=== PATIENT | male | born 1950 | race Caucasian/White ===

== ENCOUNTER 2016-10-08 10:44 | Inpatient (IN) | payer OTHER, MEDICARE ==
[~2016-10-08] VITALS: Ht 182.9 cm; Wt 125.7 kg
[~2016-10-08 10:44] MED LIST: ABILIFY10 MG PO; ABILIFY5 MG PO; ALPRAZOLAM0.5 MG PO; ASPIRIN81 M1 PO; Aspirin E.C. PO; CAMPTOSAR100 MG/5 M IV; CEPHALEXIN500 MG PO; CLINDAMYCIN PHO60 M1 TP; Carafate PO; DOXYCYCLINE HY100 MG PO; DOXYCYCLINE MO100 MG PO; ERBITUX200 MG/100 IV; FISH OIL 1,2001 EAC4 PO; HYDROCHLOROTHIA25 MG PO; HYDROCODON-ACE1 EAC7 PO; Hydrodiuril,Oretic,E PO; K-DUR20 MEQ PO; KETOCONAZOLE120 ML TP; Keflex PO; LAMICTAL200 MG PO; LaMICtal PO; MOTRIN600 MG PO; MOTRIN800 MG PO; MULTIVITAMIN1 EAC2 PO; MYRBETRIQ25 MG PO; NORCO 5/3251 TABLET PO; NORCO 7.5/321 TABLET PO; OMEGA 3-6-91200 MG PO; OMEPRAZOLE40 M1 PO; PARNATE10 MG PO; PERCOCET 5/31 TABLET PO; PROTONIX40 MG PO; Percocet 5/325,Endoc PO; Protonix PO; XANAX0.5 MG PO; XELODA500 MG PO; Xanax PO; ZOFRAN ODT8 MG PO; ZOFRAN4 MG PO
[2016-10-08 11:57] VITALS: BP 145/93
[2016-10-08] MEDS ORDERED: POTASSIUM CHLO20 ME1 PO (11:57)
[2016-10-08 20:45] VITALS: BP 165/80
[2016-10-08 23:44] VITALS: BP 149/75
[2016-10-09] VITALS (7 sets, daily range): BP systolic 124–167; BP diastolic 65–74
[2016-10-09 05:37] LABS: HEMATOCRIT 39.4 % (38.0-50.0); MCV 94.7 FL (86-99)
[2016-10-09 05:44] LABS: INTER. NORMALIZED RATIO 1.1; PROTHROMBIN TIME 10.7 (9.2-11.2)
[2016-10-09 06:02] LABS: ANION GAP 6 MEQ/L (2-14); CHLORIDE 105 MEQ/L (99-109); GFR ESTIMATE (CALCULATED) > 59 mL/min/; GLUCOSE 127 mg/dL (70-99); POTASSIUM 4.8 MEQ/L (3.7-5.4); SAMPLE HEMOLYSIS CHECK 0; SAMPLE ICTERIC CHECK 0; SAMPLE LIPEMIA CHECK 0; SODIUM 138 MEQ/L (136-147); UREA NITROGEN (BUN) 13 mg/dL (9-23)
[2016-10-10 00:10] VITALS: BP 127/75
[2016-10-10 03:42] VITALS: BP 124/68
[2016-10-10 05:34] LABS: HEMATOCRIT 37.7 % (38.0-50.0); MCV 94.3 FL (86-99)
[2016-10-10 05:46] LABS: INTER. NORMALIZED RATIO 1.1; PROTHROMBIN TIME 11.4 (9.2-11.2)
[2016-10-10 08:00] VITALS: BP 123/66
[2016-10-10] MEDS ORDERED: COUMADIN1 MG PO (08:15)
[2016-10-10] MEDS ORDERED: OXYCONTIN15 MG PO (08:15)
[2016-10-10] MEDS ORDERED: OXYCODONE HCL5 MG PO (08:15)
[2016-10-10 12:00] VITALS: BP 114/63
[2016-10-10] MEDS ORDERED: TYLENOL EXTRA500 MG PO (16:03)
[2016-10-10] MEDS ORDERED: PERCOCET 10/1 TABLET PO (16:07)
[2016-10-10] MEDS ORDERED: LYRICA75 MG PO (16:08)
== END 2016-10-10 14:58 | DRG 496 ==
LOC: 2SOUTH 10:44 → 3WEST 21:06
PROVIDERS: Orthopaedic Surgery
DX: T84.84XA Pain due to internal orthopedic prosthetic devices, implants and grafts, initial encounter (principal); C18.9 Malignant neoplasm of colon, unspecified; C79.89 Secondary malignant neoplasm of other specified sites; Z96.653 Presence of artificial knee joint, bilateral; F32.9 Major depressive disorder, single episode, unspecified; G89.29 Other chronic pain; D86.9 Sarcoidosis, unspecified; G47.30 Sleep apnea, unspecified; Z87.442 Personal history of urinary calculi; Z68.34 Body mass index [BMI] 34.0-34.9, adult; Z79.899 Other long term (current) drug therapy
CPT/HCPCS: 80048; 85014; 85018; 85610; 94660; 97530 GP; J0131; J0330; J0690; J1100; J1170; J1885; J2405; J3010; J3370; J7120; S0020

== ENCOUNTER 2016-10-10 15:02 | Inpatient (IN) | payer OTHER, MEDICARE ==
[~2016-10-10] VITALS: Ht 182.9 cm; Wt 127.5 kg
[~2016-10-10 15:02] MED LIST changes: +COUMADIN1 MG PO; +OXYCODONE HCL5 MG PO; +OXYCONTIN15 MG PO; +POTASSIUM CHLO20 ME1 PO
[2016-10-10 15:16] VITALS: BP 140/70
[2016-10-10] MEDS ORDERED: TYLENOL EXTRA500 MG PO (16:03)
[2016-10-10] MEDS ORDERED: PERCOCET 10/1 TABLET PO (16:07)
[2016-10-10] MEDS ORDERED: LYRICA75 MG PO (16:08)
[2016-10-11] VITALS: BP 120/56
[2016-10-11 05:30] VITALS: BP 106/53
[2016-10-11 06:20] LABS: INTER. NORMALIZED RATIO 1.2; PROTHROMBIN TIME 12.1 (9.2-11.2)
[2016-10-11 16:16] VITALS: BP 133/72
[2016-10-12 04:44] VITALS: BP 122/58
[2016-10-12 05:43] LABS: MCH 30.1 PG (29.0-34.0); MCHC 31.9 G/DL (30.0-36.0); MCV 94.2 FL (86-99); MEAN PLAT.VOLUME 11.2 uM^3 (9.0-12.4); PLATELET COUNT 193 K/uL (156-360); RBC DIS.WIDTH-CV 13.7 % (11.8-14.6); RBC DIS.WIDTH-SD 47.1 % (39-53); RED BLOOD COUNT 3.82 M/uL (4.00-5.50); WHITE BLOOD COUNT 6.2 K/uL (4.1-10.2)
[2016-10-12 05:49] LABS: INTER. NORMALIZED RATIO 1.2; PROTHROMBIN TIME 12.7 (9.2-11.2)
[2016-10-12 06:12] LABS: ALKALINE PHOSPHATASE 79 IU/L (3-129); ANION GAP 8 MEQ/L (2-14); CHLORIDE 97 MEQ/L (99-109); GFR ESTIMATE (CALCULATED) > 59 mL/min/; GLUCOSE 112 mg/dL (70-99); SAMPLE HEMOLYSIS CHECK 0; SAMPLE ICTERIC CHECK 0; SAMPLE LIPEMIA CHECK 0; SODIUM 134 MEQ/L (136-147); TOTAL BILIRUBIN 0.6 MG/DL (0.0-1.0); UREA NITROGEN (BUN) 13 mg/dL (9-23)
[2016-10-12 06:24] LABS: POTASSIUM 3.8 MEQ/L (3.7-5.4)
[2016-10-12 16:02] VITALS: BP 133/64
[2016-10-13 05:15] VITALS: BP 127/68
[2016-10-13 07:07] LABS: INTER. NORMALIZED RATIO 1.3; PROTHROMBIN TIME 13.1 (9.2-11.2)
[2016-10-13 16:02] VITALS: BP 117/58
[2016-10-14 04:10] VITALS: BP 130/68
[2016-10-14 05:42] LABS: INTER. NORMALIZED RATIO 1.6; PROTHROMBIN TIME 16.2 (9.2-11.2)
[2016-10-14 15:22] VITALS: BP 131/85
[2016-10-15 05:25] LABS: INTER. NORMALIZED RATIO 1.8; PROTHROMBIN TIME 19.1 (9.2-11.2)
[2016-10-15 06:00] VITALS: BP 139/81
[2016-10-15 15:24] VITALS: BP 146/67
[2016-10-16 05:33] VITALS: BP 116/53
[2016-10-16 05:35] LABS: PROTHROMBIN TIME 20.5 (9.2-11.2)
[2016-10-16 15:18] VITALS: BP 123/63
[2016-10-17 05:24] LABS: INTER. NORMALIZED RATIO 2.1; PROTHROMBIN TIME 21.4 (9.2-11.2)
[2016-10-17 06:37] VITALS: BP 121/62
[2016-10-17 15:48] VITALS: BP 111/68
[2016-10-18 05:56] LABS: INTER. NORMALIZED RATIO 2.1; PROTHROMBIN TIME 22.1 (9.2-11.2)
[2016-10-18 05:58] VITALS: BP 111/55
[2016-10-18 15:37] VITALS: BP 132/72
[2016-10-19 05:22] VITALS: BP 116/84
[2016-10-19 09:03] LABS: INTER. NORMALIZED RATIO 2.6; PROTHROMBIN TIME 26.8 (9.2-11.2)
[2016-10-19 15:21] VITALS: BP 126/66
[2016-10-20 05:07] LABS: INTER. NORMALIZED RATIO 2.6; PROTHROMBIN TIME 26.9 (9.2-11.2)
[2016-10-20 05:49] VITALS: BP 130/66
[2016-10-20 15:50] VITALS: BP 137/61
[2016-10-21 04:31] VITALS: BP 123/65
[2016-10-21 04:57] LABS: MCHC 31.4 G/DL (30.0-36.0); MCV 92.3 FL (86-99); RBC DIS.WIDTH-SD 45.5 % (39-53); RED BLOOD COUNT 3.79 M/uL (4.00-5.50); WHITE BLOOD COUNT 5.8 K/uL (4.1-10.2)
[2016-10-21 05:03] LABS: MEAN PLAT.VOLUME 9.9 uM^3 (9.0-12.4)
[2016-10-21 05:04] LABS: INTER. NORMALIZED RATIO 2.2; PROTHROMBIN TIME 23.2 (9.2-11.2)
[2016-10-21 05:05] LABS: PLATELET COUNT 356 K/uL (156-360)
[2016-10-21 05:06] LABS: CHLORIDE 106 mEq/L (99-109); POTASSIUM 4.1 mEq/L (3.7-5.4); SODIUM 140 mEq/L (136-147)
[2016-10-21 05:08] LABS: GLUCOSE 87 mg/dL (70-99)
[2016-10-21 05:10] LABS: ANION GAP 9 MEQ/L (2-14); TOTAL BILIRUBIN 0.4 mg/dL (0.0-1.0)
[2016-10-21 05:12] LABS: ALKALINE PHOSPHATASE 80 IU/L (3-129); GFR ESTIMATE (CALCULATED) > 59 mL/min/
[2016-10-21 05:13] LABS: UREA NITROGEN (BUN) 16 mg/dL (9-23)
[2016-10-21 15:22] VITALS: BP 125/68
[2016-10-21 20:15] VITALS: BP 139/65
[2016-10-22 05:38] VITALS: BP 128/64
[2016-10-22 06:21] LABS: INTER. NORMALIZED RATIO 1.9; PROTHROMBIN TIME 19.9 (9.2-11.2)
[2016-10-22] MEDS ORDERED: Chronulac,Cephulac,E PO (13:24)
[2016-10-22] MEDS ORDERED: FENTANYL1 EAC5 TD (13:24)
[2016-10-22] MEDS ORDERED: FOLIC ACID1 MG PO (13:24)
[2016-10-22] MEDS ORDERED: ASCORBIC ACID500 M3 PO (13:24)
[2016-10-22] MEDS ORDERED: LIDOCAINE700 MG TD (13:24)
[2016-10-22] MEDS ORDERED: SENNA PLUS TAB1 EACH PO (13:24)
[2016-10-22] MEDS ORDERED: THERAGRAN1 TABLET PO (13:24)
[2016-10-22] MEDS ORDERED: COUMADIN2 MG PO (13:25)
[2016-10-22 15:35] VITALS: BP 111/59
== END 2016-10-22 15:56 | DRG 560 ==
LOC: 3WEST 15:02
PROVIDERS: Physical Medicine & Rehabilitation Pain Medicine; Psychiatry & Neurology Neurology
PROC: F07M0ZZ Range of Motion and Joint Mobility Treatment of Musculoskeletal System - Whole Body (ICD-10-PCS; principal; 2016-10-10)
DX: Z47.1 Aftercare following joint replacement surgery (principal); R26.2 Difficulty in walking, not elsewhere classified; F32.9 Major depressive disorder, single episode, unspecified; G89.29 Other chronic pain; D62 Acute posthemorrhagic anemia; G47.30 Sleep apnea, unspecified; Z96.653 Presence of artificial knee joint, bilateral; K59.00 Constipation, unspecified; N20.0 Calculus of kidney; D86.9 Sarcoidosis, unspecified; E66.9 Obesity, unspecified; I10 Essential (primary) hypertension; Z68.38 Body mass index [BMI] 38.0-38.9, adult; R00.0 Tachycardia, unspecified; C18.9 Malignant neoplasm of colon, unspecified; G89.18 Other acute postprocedural pain
CPT/HCPCS: 80053; 85027; 85610; 93005; 93970; 94660; 94799; 97110 GO; 97530 GP